=== PATIENT | female | born 1930 | race Caucasian/White ===

== ENCOUNTER 2017-02-19 17:45 | Emergency (ER) | payer OTHER ==
[~2017-02-19] VITALS: Ht 160 cm; Wt 63.0 kg
[~2017-02-19 17:45] MED LIST: ASPIRIN81 M1 PO; CALCIUM + D TA1 EACH PO; CENTRUM SILVER1 EACH PO; GLUCOPHAGE500 MG PO; PRAVACHOL40 MG PO
[2017-02-19 18:16] LABS: HEMATOCRIT 35.3 % (36.0-46.0); MCH 27.5 PG (29.0-34.0); MCHC 32.3 G/DL (30.0-36.0); MCV 85.1 FL (83-99); MEAN PLAT.VOLUME 9.6 uM^3 (9.5-12.4); PLATELET COUNT 181 K/uL (156-360); RBC DIS.WIDTH-CV 13.2 % (11.8-14.6); RBC DIS.WIDTH-SD 41.2 % (39-53); RED BLOOD COUNT 4.15 M/uL (3.80-5.20)
[2017-02-19 18:33] LABS: CHLORIDE 105 mEq/L (99-109)
[2017-02-19 18:34] LABS: MAGNESIUM 1.9 mg/dL (1.3-2.7); POTASSIUM 3.6 mEq/L (3.7-5.4); SODIUM 140 mEq/L (136-147)
[2017-02-19 18:36] LABS: GLUCOSE 111 mg/dL (70-99)
[2017-02-19 18:37] LABS: ANION GAP 12 MEQ/L (2-14)
[2017-02-19 18:38] LABS: TOTAL BILIRUBIN 0.7 mg/dL (0.0-1.0)
[2017-02-19 18:39] LABS: ALKALINE PHOSPHATASE 70 IU/L (3-129)
[2017-02-19 18:40] LABS: GFR ESTIMATE (CALCULATED) > 59 mL/min/
[2017-02-19 18:41] LABS: UREA NITROGEN (BUN) 15 mg/dL (9-23)
[2017-02-19 18:43] LABS: CREATINE KINASE 125 IU/L (1-294); TOTAL CK 125 IU/L (1-294)
[2017-02-19 18:45] LABS: TROP-I INTERPRETATION NEGATIVE; TROPONIN-I 0.02 ng/mL (0.0-0.30)
[2017-02-19 18:53] LABS: ABS NEUTROPHIL COUNT 4.5; ANISOCYTOSIS 1+; ATYPICAL LYMPHOCYTE 2.6 %; BAND NEUTROPHILS 30.4 % (0-8.0); BASOPHILS 0.9 %; EOSINOPHIL ABS CT 0.1; EOSINOPHILS 1.7 % (0-5.0); INSTRUMENT ABS NEUTROPHIL CT 4.7 K/uL; LYMPHOCYTES 3.5 % (15.0-45.0); MICROCYTOSIS 1+; MYELOCYTES 0.9 %; OVALOCYTES 1+; PLAT.SUFFICIENCY ADEQUATE; POIKILOCYTOSIS 1+; SEG.NEUTROPHILS 59.1 % (46.0-76.0)
[2017-02-19 19:22] LABS: ADD MIUA? NO; BILIRUBIN NEGATIVE; BLOOD NEGATIVE; COLOR YELLOW ((YELLOW)); GLUCOSE (STRIP) NEGATIVE; KETONES NEGATIVE; LEUKOCYTES NEGATIVE; NITRITE NEGATIVE; PROTEIN (STRIP) NEGATIVE; SPECIFIC GRAVITY 1.013 (1.000-1.030); UCUL ADDED? NO; UROBILINOGEN 0.2 MG/DL (0.2-1.0)
[2017-02-19 22:09] LABS: TROP-I INTERPRETATION NEGATIVE; TROPONIN-I 0.02 ng/mL (0.0-0.30)
[2017-02-19 23:08] VITALS: BP 110/70
== END 2017-02-19 23:08 | disposition home or self-care (01) ==
LOC: EME 17:45
PROVIDERS: Emergency Medicine
DX: R42 Dizziness and giddiness (principal); E87.6 Hypokalemia; E11.9 Type 2 diabetes mellitus without complications; I10 Essential (primary) hypertension; E78.5 Hyperlipidemia, unspecified; Z88.0 Allergy status to penicillin; Z79.82 Long term (current) use of aspirin; Z79.84 Long term (current) use of oral hypoglycemic drugs; Z86.018 Personal history of other benign neoplasm
CPT/HCPCS: 70450; 71010; 80053; 81003; 82550; 82553; 83605; 83735; 84484; 85025; 93005; 99281; 99285